=== PATIENT | male | born 1990 | race African-American/Black ===

== ENCOUNTER 2020-01-23 15:58 | Outpatient (REF) | payer OTHER, SELFPAY ==
--- NOTE | 2020-01-23 | XR_ITS ---
EXAMINATION: XR LUMBOSACRAL SPINE WITH OBLIQUES CLINICAL INFORMATION: Low back pain. COMPARISON: None TECHNIQUE: AP, both oblique, and lateral views of the lumbar spine. Lateral view of the lumbosacral junction. FINDINGS: Vertebral alignment is normal. Vertebral body heights and disc spaces are maintained. No evidence of acute fracture. SI joints are intact. Phleboliths in the pelvis. IMPRESSION: No evidence of acute osseous abnormality.
--- NOTE | 2020-01-23 | XR_ITS ---
EXAMINATION: XR HIP, RIGHT CLINICAL INFORMATION: Hip pain. COMPARISON: None TECHNIQUE: Two views of the right hip. FINDINGS: No fracture. Alignment is anatomic. Hip joint space is maintained. Visualized right hemipelvis is intact. No abnormal soft tissue calcification. IMPRESSION: No evidence of significant osseous abnormality.
== END 2020-01-23 15:59 | disposition home or self-care (01) ==
LOC: HO.XRAY 15:58
PROVIDERS: PCP Internal Medicine; Visit Provider Internal Medicine
DX: M25.551 Pain in right hip (principal); M54.5 Low back pain
CPT/HCPCS: 72110; 73502

== ENCOUNTER 2021-01-09 12:16 | Outpatient (REF) | payer OTHER, SELFPAY | END 2021-01-09 12:17 | disposition home or self-care (01) | LOC: HO.LAB 12:16 | PROVIDERS: Visit Provider Internal Medicine | DX: Z20.822 Contact with and (suspected) exposure to COVID-19 (principal) | CPT/HCPCS: C9803; U0003; U0005 ==

== ENCOUNTER 2021-10-19 21:05 | Emergency (ER) | payer MEDICAID, SELFPAY ==
[2021-10-19 21:40] VITALS: BP 153/84; PULSE 95; RESP 18; TEMP 36.6; O2SAT 98; BMI 23.6
== END 2021-10-20 03:13 | disposition left against medical advice (07) ==
LOC: HO.ED 10-20 03:01
PROVIDERS: Emergency Provider Emergency Medicine
DX: S89.91XA Unspecified injury of right lower leg, initial encounter (principal); X50.1XXA Overexertion from prolonged static or awkward postures, initial encounter; Y93.74 Activity, frisbee; Y92.9 Unspecified place or not applicable; Y99.9 Unspecified external cause status
CPT/HCPCS: 99281

== ENCOUNTER 2021-10-27 11:12 | Emergency (ER) | payer MEDICAID, SELFPAY ==
[2021-10-27 12:59] VITALS: BP 140/82; PULSE 82; RESP 19; TEMP 36.6; O2SAT 99; BMI 25.1
--- NOTE | 2021-10-27 15:37 | ED_ITS ---
HPI - Extremity Injury (Lower) General Chief Complaint: Extremity Injury, Lower Stated Complaint: right leg pain Time Seen by Provider: 10/27/21 15:23 Source: patient Mode of arrival: ambulatory Limitations: no limitations History of Present Illness HPI Narrative: 31-year-old male healthy who is here with right posterior thigh pain after an injury which occurred on October 20. Patient tells me that he was playing bottle- and when he caught the Frisbee he did the horizontal splits. He felt immediate pain in his right posterior thigh. Since then he has had pain which is worsened with weight-bearing to the thigh. He did take some ibuprofen yesterday which seemed to help. He has been applying ice at home. He denies any numbness, tingling, fevers, chills. Related Data Previous Rx's Medication Instructions Recorded ibuprofen 600 mg tablet 600 mg PO TID PRN pain #30 tabs 10/27/21 Allergies Allergy/AdvReac Type Severity Reaction Status Date / Time No Known Allergies Allergy Unverified 01/04/20 16:50 Review of Systems Review of Systems: Yes all other systems are reviewed and are negative Constitutional: Constitutional: Reports no additional constitutional complaints, Denies body ache(s), Denies chills, Denies fever(s), Denies headache(s) and Denies weakness Eyes: Eyes: Reports no additional eye complaints and Denies change in vision ENT: Reports system reviewed and no additional complaints, except as documented, Denies dizziness, Denies headache(s), Denies nasal congestion, Denie s nasal discharge and Denies neck pain Cardiovascular: Cardiovascular: Reports no additional cardiovascular complaints, Denies chest pain, Denies leg edema and Denies dyspnea Respiratory: Respiratory: Reports no additional respiratory complaints, Denies cough and Denies dyspnea Gastrointestinal: Gastrointestinal: Reports no additional gastrointestinal complaints, Denies abdominal pain, Denies diarrhea, Denies nausea and Denies vomiting Genitourinary: Genitourinary: Denies urinary incontinence Musculoskeletal: Musculoskeletal: Reports no additional musculoskeletal complaints, Denies back pain, Denies arthralgias, Denies joint swelling, Denies neck pain, Denies numbness and Denies tingling Comments: +muscle pain Integumentary/Breasts: Skin/Breast: Reports system reviewed and no additional complaints, except as docu, Reports swelling and Denies rash Neurologic: Reports system reviewed and no additional complaints, except as documented, Denies Abnormal speech present, Denies dizziness, Denies headache(s), Denies numbness, Denies tingling and Denies weakness PMFSH Past Medical History Attestation statement: The following information was validated with the patient. Source: old records reviewed and nursing notes reviewed Social History Social History Advance Directives: No Advance Directives Information Provided: No Physical Exam Vital Signs: Vital Signs: Last Vital Signs Temp 98 F 10/27/21 12:59 Pulse 82 10/27/21 12:59 Resp 19 10/27/21 12:59 BP 140/82 H 10/27/21 12:59 Pulse Ox 99 10/27/21 12:59 O2 Del Method 10/27/21 12:59 BMI result Body Mass Index 25.1 Const: General: cooperative, healthy appearing, comfortable and no acute distress Orientation/consciousness: patient oriented x3 Limitations: no limitations HEENT: Head: Yes normal to inspection Ears: hearing grossly normal bilaterally General nose exam: Normal external nose present Face and sinus: Yes normal facial exam Mouth: Normal oral and palatal mucosa present Throat: Yes posterior oropharynx normal Eyes: General: appearance normal, both eyes and all related structures Pupils: Equal, round and reactive pupils present Neck: Neck: Yes normal visual inspection Chest: Chest palpation & inspection: normal inspection of the chest Resp: Effort & Inspection: normal respiratory effort Auscultation: clear to auscultation bilaterally Cardio: Rate: regular rate Rhythm: regular rhythm Peripheral pulses: Peripheral pulses 2+ throughout GI: Inspection: Yes normal to inspection Palpation (GI): Soft to palpation and nontender Auscultation: normal bowel sounds Back/Spine/Pelvis: Thoracic/Lumbar Spine: thoracic and lumbar spine normal to inspection Skin: General skin exam: no rashes or lesions noted Neuro: General: patient oriented x3, no focal motor deficits and normal sensation to monofilament Cranial nerves: Yes Equal, round and reactive pupils present Cognition (Neuro): normal cognition Speech: No Abnormal speech present Gait exam (Neuro): Normal gait present Motor exam (neuro): 5/5 motor strength present throughout Extrem: Other: To the right posterior thigh there is ecchymosis and tenderness There is full range of motion of the right lower extremity. Patient is able to flex and extend the knee with no difficulty. There is no warmth or redness. General: Yes normal to inspection MDM - Extremity Injury (Lower) MDM Narrative Medical decision making narrative: 31-year-old male here with right posterior thigh pain after an injury which occurred on October 20. To the right posterior thigh there is ecchymosis and tenderness with no obvious deformity. Patient has full range of motion of the affected limb. Likely hamstring strain. Low concern for rupture as patient has full range of motion. Will recommend rice, Elijah wrap and crutches in addition to NSAID. Patient should follow-up with Orthopedics for persistent symptoms Medical Records Attestation: I reviewed the patient's medical records. Lab Data Attestation: I reviewed the patient's lab results. Discharge Plan Discharge Clinical Impression: Right hamstring muscle strain Patient Disposition: Home, Self-Care Instructions: Muscle Strain (ED), Hamstring Injury (ED), R.I.C.E. Treatment (E D) Additional Instructions: Elijah wrap for comfort Limit weight-bearing until able to bear weight without experiencing pain Follow-up with Orthopedics for persistent symptoms Prescriptions: New ibuprofen 600 mg tablet 600 mg PO TID PRN (Reason: pain) Qty: 30 0RF Referrals: [facility] [place] [facility] [Provider Group] Stand Alone Forms: Work/School Release Interventions: ED Discharge Assessment Last Done: 10/27/21 16:06 Discharge Date/Time: 10/27/21 16:06
== END 2021-10-27 16:06 | disposition home or self-care (01) ==
PROVIDERS: Emergency Provider Emergency Medicine
DX: M79.651 Pain in right thigh (principal)
CPT/HCPCS: 99283